=== PATIENT | male | born 1955 | race Caucasian/White ===

== ENCOUNTER 2023-08-13 08:00 | Outpatient (RCR) | payer MEDICARE, OTHER ==
[~2023-08-13 08:00] MED LIST: LORTAB 10/5001 EACH PO; Z.0.AMBIEN10 MG PO; Z.0.FLEXERIL10 MG PO; Z.0.FLOMAX0.4 MG PO; Z.0.PLAVIX75 MG PO; Z.0.TOPROL XL100 MG PO; Z.0.XANAX0.5 MG PO
[2023-08-13 16:10] LABS: BASOPHILS % 0.4 % (0.0-1.0); EOSINOPHILS # (AUTO) 0.1 (0.0-0.4); EOSINOPHILS % 2.3 % (0.0-6.0); HEMATOCRIT 44.9 % (38.2-49.6); HEMOGLOBIN 15.8 g/dL (14.0-18.0); LYMPHOCYTES # (AUTO) 0.5 (1.0-3.2); LYMPHOCYTES % 10.6 % (18.0-39.1); MEAN CORPUSCULAR HEMOGLOBIN 32.8 pg (28-32); MEAN CORPUSCULAR HGB CONC 35.2 g/dL (31-35); MEAN CORPUSCULAR VOLUME 93.2 fL (81-99); MONOCYTES # (AUTO) 0.7 (0.2-0.8); MONOCYTES % 15.5 % (4.4-11.3); NEUTROPHILS # (AUTO) 3.4 (2.1-6.9); PLATELET COUNT 173 x10e3/uL (140-360); RED BLOOD COUNT 4.82 x10e6/uL (4.3-5.7); WHITE BLOOD COUNT 4.72 x10e3/uL (4.8-10.8)
[2023-08-13 16:25] LABS: ALBUMIN 4.1 g/dL (3.5-5.0); ALBUMIN/GLOBULIN RATIO 1.4 (0.8-2.0); BILIRUBIN,TOTAL 0.5 mg/dL (0.2-1.2); CREATININE, SERUM 1.29 mg/dL (0.72-1.25); TOTAL PROTEIN 7.1 g/dL (6.5-8.1)
[2023-08-13 21:46] LABS: ANION GAP 21.7 mmol/L (8-16)
[2023-08-13 21:47] LABS: CALCIUM 10.1 mg/dL (8.4-10.2); POTASSIUM 4.7 mmol/L (3.5-5.1)
== END 2023-08-28 14:24 | disposition home or self-care (01) ==
LOC: WCC 08:00
PROVIDERS: ATTEND Internal Medicine Infectious Disease
DX: L59.8 Other specified disorders of the skin and subcutaneous tissue related to radiation (principal); Y84.2 Radiological procedure and radiotherapy as the cause of abnormal reaction of the patient, or of later complication, without mention of misadventure at the time of the procedure
CPT/HCPCS: 36415; 80053; 83036; 84134; 85025

== ENCOUNTER 2023-09-30 20:01 | Emergency (ER) | payer MEDICARE, OTHER ==
[~2023-09-30] VITALS: Ht 185.4 cm; Wt 104.3 kg
[2023-09-30 20:39] VITALS: TEMP 98.2
[2023-09-30 20:55] LABS: BASOPHILS % 0.6 % (0.0-1.0); EOSINOPHILS % 0.3 % (0.0-6.0); HEMATOCRIT 50.5 % (38.2-49.6); HEMOGLOBIN 17.8 g/dL (14.0-18.0); LYMPHOCYTES # (AUTO) 0.3 (1.0-3.2); LYMPHOCYTES % 7.9 % (18.0-39.1); MEAN CORPUSCULAR HEMOGLOBIN 31.9 pg (28-32); MEAN CORPUSCULAR HGB CONC 35.2 g/dL (31-35); MEAN CORPUSCULAR VOLUME 90.5 fL (81-99); MONOCYTES # (AUTO) 0.7 (0.2-0.8); MONOCYTES % 22.9 % (4.4-11.3); NEUTROPHILS # (AUTO) 2.1 (2.1-6.9); NEUTROPHILS % 67.7 % (38.7-80.0); PLATELET COUNT 122 x10e3/uL (140-360); RED BLOOD COUNT 5.58 x10e6/uL (4.3-5.7); RED CELL DISTRIBUTION WIDTH 13.6 % (11.7-14.4); WHITE BLOOD COUNT 3.15 x10e3/uL (4.8-10.8)
[2023-09-30] MEDS: SODIUM CHLORIDE 0.9% 1000ML 1,000 ML IV ONE (21:13)
[2023-09-30 21:16] LABS: ALANINE AMINOTRANSFERASE 58 IU/L (0-55); ALBUMIN 4.1 g/dL (3.5-5.0); ALBUMIN/GLOBULIN RATIO 1.4 (0.8-2.0); ALKALINE PHOSPHATASE 75 IU/L (40-150); BILIRUBIN,TOTAL 0.6 mg/dL (0.2-1.2); BLOOD UREA NITROGEN 19 mg/dL (7-26); BUN/CREATININE RATIO 12 (6-25); CALCIUM 10.1 mg/dL (8.4-10.2); CARBON DIOXIDE 25 mmol/L (22-29); CHLORIDE 89 mmol/L (98-107); CREATINE KINASE 430 IU/L (30-200); CREATININE, SERUM 1.53 mg/dL (0.72-1.25); EST GLOMERULAR FILTRATION RATE 49 ML/MIN (>=60); GLUCOSE 97 mg/dL (74-118); SODIUM 127 mmol/L (136-145); TOTAL PROTEIN 7.1 g/dL (6.5-8.1)
[2023-09-30 21:23] LABS: TROPONIN I < 0.05 ng/mL (0.0-0.40)
[2023-09-30 21:29] LABS: INFLUENZAE A&B ANTIGEN (RAPID) NEGATIVE (NEGATIVE); RESPIRATORY SYNC. VIRUS NEGATIVE (NEGATIVE)
[2023-09-30] MEDS ORDERED: ACETAMINOPHEN 325 MG TAB ONE (23:29)
[2023-09-30 23:30] VITALS: PULSE 95; RESP 20
[2023-09-30 23:49] LABS: CLARITY,URINE CLEAR (CLEAR); COLOR,URINE YELLOW (YELLOW)
[2023-09-30 23:50] LABS: BILIRUBIN,URINE NEGATIVE (NEGATIVE); GLUCOSE, URINE NEGATIVE (NEGATIVE); KETONES,URINE NEGATIVE (NEGATIVE); LEUKOCYTE ESTERASE ,URINE NEGATIVE (NEGATIVE); NITRITE,URINE NEGATIVE (NEGATIVE); PH,URINE 5.5 (5 - 7); PROTEIN,URINE DIPSTICK NEGATIVE (NEGATIVE); URINE UROBILINOGEN 0.2 mg/dL (0.2 - 1)
[2023-10-01 00:11] VITALS: BP 117/82; O2SAT 97
[2023-10-01 00:28] LABS: BACTERIA,URINE MANY /HPF; EPITHELIAL CELLS,URINE FEW /LPF; RBC,URINE 0-5 /HPF (0-5)
== END 2023-10-01 00:05 | disposition home or self-care (01) ==
LOC: ER 20:18
DX: R53.1 Weakness (principal); U07.1 COVID-19; M25.552 Pain in left hip; M25.551 Pain in right hip; W01.0XXA Fall on same level from slipping, tripping and stumbling without subsequent striking against object, initial encounter; Y92.89 Other specified places as the place of occurrence of the external cause; I10 Essential (primary) hypertension; I48.91 Unspecified atrial fibrillation; I25.10 Atherosclerotic heart disease of native coronary artery without angina pectoris; E78.5 Hyperlipidemia, unspecified; Z95.5 Presence of coronary angioplasty implant and graft; F17.210 Nicotine dependence, cigarettes, uncomplicated
CPT/HCPCS: 36415; 70450; 71045; 72125; 72170; 80053; 81001; 82550; 84484; 85025; 87400; 87420; 93005; 99284; J7030; U0002

== ENCOUNTER 2023-10-30 15:22 | Outpatient (RCR) | payer MEDICARE, OTHER | END 2023-10-31 | LOC: WCC 15:22 | PROVIDERS: ATTEND Nurse Practitioner Family | DX: L59.8 Other specified disorders of the skin and subcutaneous tissue related to radiation (principal); Y84.2 Radiological procedure and radiotherapy as the cause of abnormal reaction of the patient, or of later complication, without mention of misadventure at the time of the procedure ==

== ENCOUNTER 2023-11-17 11:16 | Outpatient (RCR) | payer MEDICARE, OTHER | END 2023-11-30 | LOC: WCC 11:16 | PROVIDERS: ATTEND Nurse Practitioner Family | DX: L59.8 Other specified disorders of the skin and subcutaneous tissue related to radiation (principal); Y84.2 Radiological procedure and radiotherapy as the cause of abnormal reaction of the patient, or of later complication, without mention of misadventure at the time of the procedure | CPT/HCPCS: G0277 ×7 ==

== ENCOUNTER 2024-04-17 22:27 | Emergency (ER) | payer MEDICARE, OTHER ==
[~2024-04-17] VITALS: Ht 182.9 cm; Wt 72.1 kg
[2024-04-17 22:30] VITALS: PULSE 73; RESP 16; TEMP 97.6
[2024-04-17] MEDS ORDERED: CEFDINIR300 MG PO (23:08)
[2024-04-17 23:31] VITALS: BP 126/79; PULSE 73; RESP 16; TEMP 97.9; O2SAT 99
== END 2024-04-17 23:34 | disposition home or self-care (01) ==
LOC: FSED 22:32
DX: R53.1 Weakness (principal); R53.83 Other fatigue; F32.A Depression, unspecified; I10 Essential (primary) hypertension; I48.91 Unspecified atrial fibrillation; I25.10 Atherosclerotic heart disease of native coronary artery without angina pectoris; E78.5 Hyperlipidemia, unspecified; M54.9 Dorsalgia, unspecified; G89.29 Other chronic pain; Z95.5 Presence of coronary angioplasty implant and graft; F17.210 Nicotine dependence, cigarettes, uncomplicated
CPT/HCPCS: 99283